=== PATIENT | male | born 1945 | race Caucasian/White ===

== ENCOUNTER 2024-12-20 18:27 | Emergency (ER) | payer MEDICARE, OTHER, SELFPAY ==
[2024-12-20] VITALS (7 sets, daily range): BP systolic 132–153; BP diastolic 77–85; BMI 25.1
[2024-12-20 18:51] LABS: % Basophils 0.7 % (0-2); % Eosinophils 1.1 % (0-6); % Immature Granulocytes 0.1 % (0-0.5); % Lymphocytes 31.3 % (20.5-51.1); % Monocytes 12.5 % (1.7-9.3); % Neutrophils 54.3 % (42.2-75.2); Absolute Basophils 0.1 10^3/uL (0-0.2); Absolute Eosinophils 0.1 10^3/uL (0-0.7); Absolute Lymphocytes 2.2 10^3/uL (1.2-3.4); Absolute Monocytes 0.9 10^3/uL (0.1-0.6); Absolute Neutrophils 3.8 10^3/uL (1.4-6.5); Hematocrit 40.7 % (39.0-52.0); Hemoglobin 13.6 g/dL (13.0-18.0); Mean Corp Hgb Conc. 33.4 g/dL (33.0-37.0); Mean Corpuscular Hgb 29.4 pg (27.0-31.0); Mean Corpuscular Volume 88.1 fL (80.0-94.0); Nucleated Red Blood Cells % 0 % (-); Platelet Count 237 10^3/uL (130-400); Red Blood Cell Count 4.62 10^6/uL (4.70-6.10); Red Cell Dist. Width 14.3 % (11.5-14.5); White Blood Cell Count 7.1 10^3/uL (4.8-10.8)
[2024-12-20 19:08] LABS: ALT (SGPT) 29 U/L (0-50); AST (SGOT) 32 U/L (17-59); Albumin 4.8 g/dl (3.5-5.0); Alkaline Phosphatase 102 U/L (38-126); Blood Urea Nitrogen 34 mg/dl (9-20); Calcium 9.7 mg/dl (8.4-10.2); Carbon Dioxide 24 mmol/L (22-30); Chloride 104 mmol/L (98-107); Glucose 94 mg/dl (70-99); Potassium 4.6 mmol/L (3.5-5.1); Sodium 141 mmol/L (135-145); Total Bilirubin 0.7 mg/dl (0.2-1.3); Total Protein 7.7 g/dl (6.3-8.2); eGFR 50.81
[2024-12-20 19:09] LABS: Lipase 311 U/L (23-300)
[2024-12-20 19:20] LABS: Troponin I < 0.012 ng/ml
--- NOTE | 2024-12-20 20:57 | ED.GENMED ---
History of Present Illness
General
Chief Complaint: Breathing Problem
Source: patient and spouse
Time Seen by Provider: 12/20/24 19:39
History of Present Illness
History of Present Illness:
79-year-old male presents to the emergency room complaining of left shoulder/chest discomfort. Patient states the discomfort occurs intermittently. He has been experiencing this discomfort for the past week or 2. It began after using a chainsaw
to some wood and then moving the pieces of wood. The pain happens maybe 2 or 3 times a day. Most recently the pain occurred this afternoon while he was bending over and gardening. No discomfort at this time. Patient denies any cardiac history.
He does take an antihypertensive and a statin. He has never smoked. He denies any recent travel or periods of immobilization.
Phy Exam
Physical Exam
Physical Exam:
General: Awake, Alert, Oriented X3. No acute distress.
Vitals: unremarkable
Head: Atraumatic
Eyes: Pupils equal, EOMI
Throat: Airway intact, no exudates
Neck: Trachea midline
Lungs: Clear and equal b/l
Heart: Regular rate, no murmurs
Abd: Soft, Nontender, No pulsatile mass
Neuro: Nonfocal
Skin: Warm, dry, no rash
Extremities: pulses equal b/l, no edema
Scores
Heart Failure Risk
Heart Failure Risk Score: Not Applicable
Course
Orders/Labs/Results
Orders:
Orders
12/20/24 18:42
Complete Blood Count/With Diff Urgent
Comprehensive Metabolic Panel Urgent
Free T4 Urgent
Lipase Urgent
TSH Reflex To Free T4 Urgent
Comment: ADD ON
Troponin I Urgent
12/20/24 20:55
CR Chest - 2 Views Urgent
Comment:
Reason For Exam: intermittent chest pain
12/20/24 20:56
Add On- LAB Urgent
Tests Added?: tsh reflext t4
12/20/24 21:08
EKG- Treatment ONCE
12/20/24 21:30
EKG [Electrocardiogram (*1)] Urgent
Reason for Study: Chest Pain
12/20/24 21:41
Troponin I Urgent
Abnormal Lab Results
12/20/24
18:42
RBC 4.62 L 10^6/uL
(4.70-6.10)
Absolute Monos (auto) 0.9 H 10^3/uL
(0.1-0.6)
Monocytes % 12.5 H %
(1.7-9.3)
BUN 34 H mg/dl
(9-20)
Creatinine 1.4 H mg/dL
(0.7-1.3)
Lipase 311 H U/L
(23-300)
TSH (Reflex) 0.43 L uIU/ml
(0.47-4.68)
12/20/24 18:42
12/20/24 18:42
Vital Signs
Initial and Last Documented VS:
Initial Vital Signs
Temp Pulse Resp BP Pulse Ox
98.2 F 89 18 153/82 98
12/20/24 18:33 12/20/24 18:33 12/20/24 18:33 12/20/24 18:33 12/20/24 18:33
Last Documented Vital Signs
Temp Pulse Resp BP Pulse Ox
98.2 F 81 22 151/96 99
12/20/24 18:33 12/21/24 00:00 12/21/24 00:00 12/21/24 00:00 12/21/24 00:00
MDM/Problems Addressed
Differential Diagnosis Includes:
Stable angina, ACS, pneumothorax, musculoskeletal pain
MDM/Problems Addressed:
Patient presents with intermittent left-sided chest pain. Work appears unremarkable. Troponins negative x 2. Chest x-ray shows no acute abnormality. TSH is slightly low but T4 is normal. No evidence for an unstable process ongoing. Patient
will be placed on the chest pain hotline for close follow-up.
*Radiology
Radiology exam reviewed: preliminary read by ED provider (No acute abnormalities on my review of chest x-ray)
*Pulse Oximetry
Patient hypoxic: no
*EKG
Interpreted by ED Provider?: Yes
Heart Rate: 82
Rate: normal
Rhythm: sinus
[place]: normal axis
Interval: normal interval
QRS Pattern: normal QRS
Ischemia: no ischemia
*Meat [employer]ess Interpretation
Rate: normal
Interpretation: normal
Heart Rate: 82
Rhythm: sinus
*Critical Care Note
Total Time (30-74mins, 75-104mins- exclusive of procedures): Not Applicable
Patient Management
Social determinants of health affecting care: Strong social support
ED Attending Note
-
Portions of this chart may have been created with voice recognition software.� Occasional wrong word or��sound alike� substitutions may have occurred due to the inherent limitations of voice recognition software.
Discharge Plan
Departure
Patient Disposition: Home (Routine Discharge)
Date of Disposition: 12/20/24
Time of Disposition: 23:47
Patient with high blood pressure during this ER visit?: Yes
Condition: Good
Discharge Problem:
Chest pain
Instructions: Chest Pain CBC Follow Up
Prescriptions:
No Action
atorvastatin 10 mg Tablet
10 mg PO DAILY
lisinopril-hydrochlorothiazide 20-12.5 mg Tablet
1 tab PO DAILY
tamsulosin 0.4 mg Capsule
0.4 mg PO DAILY
pramipexole 0.25 mg Tablet
0.25 mg PO DAILY
Centrum Silver Tablet
1 tab PO DAILY
coenzyme Q10 [CoQ-10] 100 mg Capsule
100 mg PO DAILY
omega 7-nef-xlc-fish oil [Fish Oil] 1,200 (144-216) mg Capsule
1 cap PO DAILY
Glucosamine
1 tab PO DAILY
oxycodone 5 mg tablet
5 - 10 mg PO Q4HPRN PRN (Reason: moderate to severe pain) Qty: 14 0RF
Referrals:
Nacho Sheehan MD [Family Provider] -
Kt Irby MD [Active] -
Interventions
Interventions:
*Risk Screen - Suicide Last Done: 12/20/24 18:33
*General Assessment Last Done: 12/20/24 19:37
*Neglect/Abuse Screening Last Done: 12/20/24 18:33
*ED- Fall Risk Assessment Last Done: 12/20/24 19:37
*ED COVID-19 Vaccine History Last Done: 12/20/24 18:33
*Nursing Disposition Last Done: 12/21/24 00:10
ED- Cardiac Assessment Last Done: 12/20/24 19:37
ED- Pulmonary Assessment Last Done: 12/20/24 19:37
Discharge Date and Time
Discharge Date/Time: 12/21/24 00:10
Print Language: NIGERIAN
[2024-12-20 22:13] LABS: TSH Reflex To Free T4 0.43 uIU/ml (0.47-4.68)
[2024-12-20 22:14] LABS: Troponin I < 0.012 ng/ml
[2024-12-20 22:43] LABS: Free T4 1.28 ng/dl (0.78-2.19)
[2024-12-21] VITALS: BP 151/96
== END 2024-12-21 00:10 | disposition home or self-care (01) ==
LOC: EMR 18:27
PROVIDERS: Student in an Organized Health Care Education/Training Program; EMERGENCY PHYSICIAN Emergency Medicine; FAMILY PHYSICIAN Family Medicine
DX: R07.89 Other chest pain (principal); M25.512 Pain in left shoulder
CPT/HCPCS: 99283; 71046; 80053; 83690; 84439; 84443; 84484; 85025; 93005

== ENCOUNTER → 2025-01-04 08:17 | Outpatient (REF) | payer MEDICARE, OTHER, SELFPAY | LOC: RCS 08:17 | PROVIDERS: ATTENDING PHYSICIAN Internal Medicine Cardiovascular Disease; FAMILY PHYSICIAN Family Medicine | DX: R07.2 Precordial pain (principal) | CPT/HCPCS: 93017; 93350 ==

== ENCOUNTER → 2025-01-11 09:11 | Outpatient (REF) | payer MEDICARE, OTHER, SELFPAY | LOC: RCS 09:11 | PROVIDERS: ATTENDING PHYSICIAN Internal Medicine Cardiovascular Disease; FAMILY PHYSICIAN Family Medicine | DX: I10 Essential (primary) hypertension (principal); R42 Dizziness and giddiness | CPT/HCPCS: 93306 ==